=== PATIENT | male | born 1950 | race Caucasian/White ===

== ENCOUNTER 2021-12-29 10:31 | Emergency (ER) | payer MEDICARE, OTHER ==
[2021-12-29 11:05] LABS: BASOPHIL 0.7 % (0-2); EOSINOPHIL 2.3 % (0-7); HCT 48.4 % (42.0-52.0); HGB 16.3 g/dl (13.2-18.0); LYMPHOCYTE 21.6 % (15-48); MCH 30.4 pg (25.0-31.0); MCHC 33.7 g/dL (32.0-36.0); MCV 90.1 fL (78.0-100.0); MONOCYTE 8.6 % (0-12); MPV 8.8 fL (6.0-9.5); NEUTROPHIL 65.5 % (41-80); NRBC 0; PLT 185 K/uL (150-400); RBC 5.37 M/uL (4.70-6.00); RDW 14.3 % (11.5-14.0); WBC 9.2 K/uL (4.0-10.5)
[2021-12-29 11:25] LABS: ALBUMIN 3.5 g/dL (3.4-5.0); BILIRUBIN - TOTAL 0.5 mg/dL (0.2-1.0); BUN/CREAT RATIO (CALC) 13.5 RATIO; CREATININE 1.41 mg/dL (0.67-1.17); GLOBULIN (CALCULATION) 3.7 g/dL; POTASSIUM 3.3 mmol/L (3.5-5.1); TOTAL PROTEIN 7.2 g/dL (6.4-8.2)
[2021-12-29 11:40] LABS: CORONAVIRUS 2019 SARS-COV-2 NEGATIVE (NEGATIVE); INFLUENZA A NAA NEGATIVE (NEGATIVE); INR 1.02 (0.9-1.2); PROTHROMBIN TIME 13.1 SECONDS (11.9-13.9); PTT 29.9 SECONDS (24.9-34.6)
[2021-12-29 11:55] LABS: D-DIMER 12.36 ug/mLFEU (0.00-0.41)
== END 2021-12-29 14:24 | disposition other institution (70) ==
LOC: FER 10:31
PROVIDERS: Emergency Medicine
DX: I26.92 Saddle embolus of pulmonary artery without acute cor pulmonale (principal); I11.9 Hypertensive heart disease without heart failure; E66.9 Obesity, unspecified; Z20.822 Contact with and (suspected) exposure to COVID-19; Z79.82 Long term (current) use of aspirin
CPT/HCPCS: 36415; 36600; 70450; 71045; 71275; 80053; 82803; 83605; 84145; 84484; 85025; 85379; 85610; 85730; 93005; J1644; J7040; Q9967; U0002

== ENCOUNTER 2022-01-06 11:30 | Emergency (ER) | payer MEDICARE, OTHER ==
[2022-01-06 12:10] LABS: BASOPHIL 0.5 % (0-2); EOSINOPHIL 3.3 % (0-7); HCT 42.5 % (42.0-52.0); HGB 14.4 g/dl (13.2-18.0); LYMPHOCYTE 20.2 % (15-48); MCH 30.4 pg (25.0-31.0); MCHC 33.9 g/dL (32.0-36.0); MCV 89.7 fL (78.0-100.0); MONOCYTE 7.9 % (0-12); MPV 8.5 fL (6.0-9.5); NRBC 0; PLT 213 K/uL (150-400); RBC 4.74 M/uL (4.70-6.00); WBC 7.5 K/uL (4.0-10.5)
[2022-01-06 12:28] LABS: BUN/CREAT RATIO (CALC) 10.8 RATIO; CREATININE 1.39 mg/dL (0.67-1.17); POTASSIUM 3.8 mmol/L (3.5-5.1)
[2022-01-06 12:31] LABS: INR 1.32 (0.9-1.2); PTT 34.2 SECONDS (24.9-34.6)
== END 2022-01-06 12:54 | disposition home or self-care (01) ==
LOC: FER 11:30
PROVIDERS: Internal Medicine
DX: R04.0 Epistaxis (principal); I10 Essential (primary) hypertension; Z79.01 Long term (current) use of anticoagulants
CPT/HCPCS: 36415; 80048; 85025; 85610; 85730; C9046

== ENCOUNTER 2022-01-12 10:23 | Emergency (ER) | payer MEDICARE, OTHER ==
[2022-01-12 12:36] LABS: BASOPHIL 0.7 % (0-2); EOSINOPHIL 2.7 % (0-7); HCT 42.4 % (42.0-52.0); HGB 14.2 g/dl (13.2-18.0); LYMPHOCYTE 16.1 % (15-48); MCH 29.9 pg (25.0-31.0); MCHC 33.5 g/dL (32.0-36.0); MCV 89.3 fL (78.0-100.0); MONOCYTE 8.5 % (0-12); MPV 8.3 fL (6.0-9.5); NEUTROPHIL 71.8 % (41-80); NRBC 0; PLT 227 K/uL (150-400); RBC 4.75 M/uL (4.70-6.00); RDW 14.6 % (11.5-14.0); WBC 8.8 K/uL (4.0-10.5)
[2022-01-12 12:42] LABS: INR 1.23 (0.9-1.2); PROTHROMBIN TIME 15.1 SECONDS (11.9-13.9); PTT 38.2 SECONDS (24.9-34.6)
== END 2022-01-12 16:43 | disposition home or self-care (01) ==
LOC: FER 10:23
PROVIDERS: Emergency Medicine
DX: R04.0 Epistaxis (principal); I26.92 Saddle embolus of pulmonary artery without acute cor pulmonale; Z79.01 Long term (current) use of anticoagulants
CPT/HCPCS: 36415; 85025; 85610; 85730; J2370